=== PATIENT | male | born 1975 | race Two or more races ===

== ENCOUNTER 2022-01-11 10:38 | Emergency (ER) | payer MEDICAID, OTHER ==
[~2022-01-11] VITALS: Ht 185.4 cm; Wt 103.3 kg
[2022-01-11 14:15] VITALS: BP 118/67
[2022-01-11] MEDS ORDERED: IBUPROFEN 800 MG TAB PO ONE (14:15)
== END 2022-01-11 14:31 | disposition home or self-care (01) ==
LOC: ER 10:38
DX: J06.9 Acute upper respiratory infection, unspecified (principal); R07.89 Other chest pain; F17.210 Nicotine dependence, cigarettes, uncomplicated; Z20.822 Contact with and (suspected) exposure to COVID-19
CPT/HCPCS: 36415; 71046; 87426; 87804

== ENCOUNTER 2022-01-13 10:49 | Emergency (ER) | payer MEDICAID ==
[~2022-01-13] VITALS: Ht 182.9 cm; Wt 223.0 kg
[2022-01-13 13:07] VITALS: BP 108/82
[2022-01-13] MEDS ORDERED: PROM1SOL4 PO (13:55)
[2022-01-13] MEDS ORDERED: AZIT500T66 PO (13:55)
== END 2022-01-13 13:59 | disposition home or self-care (01) ==
LOC: ER 10:49
DX: J20.9 Acute bronchitis, unspecified (principal); J03.90 Acute tonsillitis, unspecified; F17.210 Nicotine dependence, cigarettes, uncomplicated

== ENCOUNTER 2022-01-16 17:51 | Emergency (ER) | payer MEDICAID ==
[~2022-01-16] VITALS: Ht 182.9 cm; Wt 103.0 kg
[~2022-01-16 17:51] MED LIST: AZIT500T66 PO; PROM1SOL4 PO
[2022-01-16 18:30] VITALS: BP 128/81
[2022-01-16 19:28] LABS: Urine Bacteria NONE SEEN /hpf (None Seen); Urine Blood Negative /uL (Negative); Urine Hyaline Cast FEW /lpf (0 - 2); Urine Specific Gravity 1.022 (1.001-1.035); Urine WBC <1 /hpf (0 - 3)
== END 2022-01-16 21:28 | disposition left against medical advice (07) ==
LOC: ER 17:51
DX: F32.9 Major depressive disorder, single episode, unspecified (principal); Z53.21 Procedure and treatment not carried out due to patient leaving prior to being seen by health care provider
CPT/HCPCS: 81001

== ENCOUNTER 2022-05-29 17:21 | Emergency (ER) | payer MEDICAID ==
[~2022-05-29] VITALS: Ht 182.9 cm; Wt 89.0 kg
[2022-05-29 18:53] VITALS: BP 142/67
== END 2022-05-29 18:53 | disposition home or self-care (01) ==
LOC: ER 17:21
DX: S51.811A Laceration without foreign body of right forearm, initial encounter (principal); S60.311A Abrasion of right thumb, initial encounter; F17.210 Nicotine dependence, cigarettes, uncomplicated; Z79.2 Long term (current) use of antibiotics; Z79.899 Other long term (current) drug therapy; Z88.0 Allergy status to penicillin; W25.XXXA Contact with sharp glass, initial encounter; Y93.89 Activity, other specified; Y92.89 Other specified places as the place of occurrence of the external cause; Y99.8 Other external cause status